=== PATIENT | female | born 1985 | race African-American/Black ===

== ENCOUNTER 2024-05-18 00:38 | Emergency (ER) | payer SELFPAY ==
[2024-05-18] MEDS ORDERED: traMADol HCl 50 MG TAB ONE (01:59)
[2024-05-18] MEDS ORDERED: Bacitracin 1 PK ONE (02:06)
== END 2024-05-18 02:20 | disposition home or self-care (01) ==
LOC: MADERS 00:38
DX: T23.252A Burn of second degree of left palm, initial encounter (principal); F17.290 Nicotine dependence, other tobacco product, uncomplicated; X08.8XXA Exposure to other specified smoke, fire and flames, initial encounter
CPT/HCPCS: 99284